=== PATIENT | male | born 1990 | race Caucasian/White ===

== ENCOUNTER 2018-08-11 15:33 | Emergency (ER) | payer MEDICAID, SELFPAY ==
[2018-08-11 15:34] VITALS: BP 139/86; PULSE 84; RESP 18; TEMP 36.7; O2SAT 97; BMI 22.8
--- NOTE | 2018-08-11 15:48 | RAD_ITS ---
STUDY: X-RAY - LEFT WRIST REASON FOR EXAM: Male, 27 years old. Wrist injury, wrist pain. TECHNIQUE: 3 view(s) of the wrist were obtained. COMPARISON: None. FINDINGS: Normal visualized distal radius and ulna. Normal radiocarpal articulation. Normal distal radioulnar articulation. Normal carpal bones. Normal carpal articulations. Normal carpometacarpal articulation of the thumb. Normal second through fifth carpometacarpal articulations. Normal visualized metacarpal bones. The soft tissue structures are unremarkable. RAD/Wrist min 3 Views IMPRESSION: Normal x-ray examination of the wrist. Electronically Signed: Artur Fajardo MD at 16:21 EDT Tel , Service support ,
--- NOTE | 2018-08-11 15:49 | ED.VISSUMM ---
- ER Visit Summary Date of Service: 08/11/18 Chief Complaint: Left wrist injury History of Present Illness: The patient is a 27 M presenting with injury to left wrist. This occurred yesterday at work. Patient states that he was throwing pipe. He felt a pop in his left wrist. He is right-handed. He states he woke up this morning with worsening pain. Denies other complaints. Physical Examination: Vitals are stable. Patient is afebrile. Alert no acute distress. HEENT exam is unremarkable. Lungs are clear and equal bilaterally. Heart is regular rate and rhythm. Extremities left wrist diffuse tenderness with no swelling or deformity. Normal cap refill. Active full range of motion. Skin is warm and dry. No focal neurologic deficit. Remainder of exam is unremarkable. Emergency Department Course and Treatment: Ice pack was applied. X-ray left wrist shows normal x-ray examination of the wrist. Patient was given a Velcro wrist splint. He was given prescription for naproxen. Advised to follow-up with [facility]. Advised to return to ED if worsening complaints. Disposition: Discharge home Impression: Left wrist sprain This note was generated with [employer] dictation software. It may contain incorrect words, spelling, and punctuation that were not noted in review of the chart prior to signing ED Disposition - Plan for ED Patient: Referrals: Care Physician,No Primary [Primary Care Provider] -
--- NOTE | 2018-08-11 16:30 | ED.RN ---
cooperate care at bedside, pt now refusing workers comp and drug screening.
--- NOTE | 2018-08-11 16:39 | ED.DEP ---
ED Disposition - Plan for ED Patient: Instructions: Wrist Sprain Prescriptions: Naproxen [Naprosyn] 500 mg PO BID PRN #20 tablet Referrals: [facility] [[facility] OF PHYSICIANS] -
[2018-08-11 17:02] VITALS: PULSE 91; RESP 18; O2SAT 99
[2018-08-11] MEDS: Naproxen 500 MG Tablet PO (17:03)
== END 2018-08-11 17:03 | disposition home or self-care (01) ==
PROVIDERS: Emergency Provider Emergency Medicine
DX: S63.502A Unspecified sprain of left wrist, initial encounter (principal); X58.XXXA Exposure to other specified factors, initial encounter; Y93.9 Activity, unspecified; Y92.9 Unspecified place or not applicable; Z72.0 Tobacco use
CPT/HCPCS: 73110; 99283

== ENCOUNTER 2019-01-14 11:26 | Emergency (ER) | payer MEDICAID, SELFPAY ==
[2019-01-14 11:27] VITALS: BP 136/80; PULSE 89; RESP 16; TEMP 36.2; O2SAT 98; BMI 22.9
--- NOTE | 2019-01-14 11:39 | ED.DCSUM_ITS ---
- ER Visit Summary Date of Service: 01/14/19 Chief Complaint: [Chest pain] History of Present Illness: The patient is a 28 M [presents to the emergency department with complaint of right-sided chest discomfort that started this morning. Patient complains of pain with deep breaths and moving certain ways. He denies recent travel or surgery. He denies any fever or cough. He is not had symptoms like this before. 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 Patient is a smoker.] Physical Examination: [HEENT-PERRLA, EOMI. Cranial nerves II through XII grossly intact. TMs clear. Mucous membranes moist. No adenopathy. Cardiovascular-regular rate and rhythm without murmur or ectopy Lungs-clear to auscultation, chest wall stable without crepitus or subcu emphysema. Patient has tenderness palpation over the right chest wall in the midaxillary line on the right. Abdomen-normoactive bowel sounds, soft, nontender, no rebound or rigidity, no peritoneal signs. Extremities-intact ?4, normal range of motion, normal pulses, atraumatic] Test Results: [CBC with differential count 9.3, hemoglobin 13, hematocrit 37, platelets 201. Chemistries unremarkable. LFTs showed an ALT of 56, AST 48, alk phos 57 and d-dimer was 1.61. Chest x-ray obtained showed questionable mass right middle lobe with nodules noted in the right middle lobe. CTA of the chest obtained showed no evidence for PE or dissection however he was noted to have mass in the right lower lobe with right lower lobe pulmonary nodules minimal right pleural effusion with right basilar atelectasis and enlargement of the right hilar lymph node and subcarinal nodes. Patient was noted to have some subtle erosive changes in the posterior aspect of the right lower rib.] Emergency Department Course and Treatment: [Patient case discussed with oncologist on-call Dr. Jabier Santos who would be happy to follow-up patient in the office. Given patient's history of sarcoma there is concern for possible recurrence and possible this is.] Treatment Plan: [Patient will be given a prescription for [place].] Disposition: [Discharged home in stable condition] Impression: [Right lung mass Chest wall pain] This note was generated with [employer] software. It may contain incorrect words, spelling, and punctuation that were not noted in review of the chart prior to signing ED Disposition - Plan for ED Patient: Referrals: Care Physician,No Primary [Primary Care Provider] -
--- NOTE | 2019-01-14 11:55 | RAD_ITS ---
STUDY: X-RAY CHEST REASON FOR EXAM: Male, 28 years old. Right-sided rib pain. Patient has a history of sarcoma of the right thigh. TECHNIQUE: PA and lateral views of the chest. COMPARISON: None. FINDINGS: There is evidence of a consolidation and possible mass in the superior segment of the right lower lobe. There is a 1.6 cm x 1.3 cm nodule in the right lung base. A smaller nodule is seen adjacent. Correlation with the CT scan of the thorax is recommended. There is no demonstrated pleural abnormality. Normal size heart. Normal mediastinum and [place]. Normal visualized pulmonary arteries. Normal visualized aortic arch and descending thoracic aorta. Normal visualized thoracic spine. Normal visualized ribs, clavicles, and shoulders. There is no demonstrated abnormality of the visualized soft tissue structures of the upper abdomen. RAD/Chest PA and Lateral IMPRESSION: Mass lesion versus consolidation in the superior segment of the right lower lobe as well as 2 small nodules in the right lung base. Correlation with CT is recommended. Electronically Signed: Nikhil Del Rio, at 12:52 EST , Service support ,
[2019-01-14 12:15] LABS: D-Dimer Quantitative (DVT/PE) 1.61 FEU/ug/m (0.27-0.49)
--- NOTE | 2019-01-14 12:15 | CT_ITS ---
STUDY: CTA CHEST REASON FOR EXAM: Male, 28 years old. Right-sided chest pain. 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 RADIATION DOSAGE (If Supplied By Facility): CTDIvol = ( 12.28 ) mGy, DLP = ( 317.34 ) mGycm TECHNIQUE: The examination was performed with the intravenous administration of 75mL Isovue-370. Post-processing of the angiographic images was performed, with multiplanar reformation and 3D reconstruction. Individualized dose optimization techniques were used for this CT. COMPARISON: Comparison is made with prior chest radiograph done earlier in the day. FINDINGS: Normal enhancement of the main pulmonary artery and right and left pulmonary arteries. Normal enhancement of the bilateral peripheral pulmonary arteries. There is no demonstrated pulmonary embolism. Normal thoracic aorta and visualized great vessels. There is no demonstrated aortic dissection. Normal heart and pericardium. There is enlarged right hilar lymph nodes. The largest measures 1.3 cm. Is also evidence of small subcarinal lymph nodes. Normal visualized trachea and bronchi. The lungs are well expanded. There is a 7 cm x 4.9 cm x 9.1 cm mass in the superior segment of the right lower lobe extending into the posterior medial segment of the right lower lobe. This abuts the posterior mediastinum. 3 pulmonary nodules are seen in the right lower lobe. The largest measures 1.5 cm. Minimal right pleural effusion with findings suggestive of a right basilar atelectasis. Normal pleura. Normal chest wall structures. Subtle erosive changes in the posterior aspect of the right lower rib. Normal visualized upper abdomen. CT/CTA Chest W/WO Contrast IMPRESSION: Mass in the right lower lobe with right lower lobe pulmonary nodules as described. Minimal right pleural effusion with right basilar atelectasis. Enlargement of the right hilar lymph node and subcarinal nodes. Electronically Signed: Nikhil Del Rio, at 13:07 EST , Service support ,
--- NOTE | 2019-01-14 12:17 | ED.RN ---
ddimer 1.[address] lab[address] dr diaz aware
[2019-01-14 12:46] VITALS: PULSE 73; RESP 18; O2SAT 97
[2019-01-14 12:51] LABS: Absolute Lymphocyte Count 1.65 X10^3/uL (0.83-4.51); Absolute Neutrophil Count 6.6 X10^3/uL (2.0-7.7); Basophil# 0.05 X10^3/uL; Basophil% 0.5 % (0-1); Differential Indicated SCAN CRITERIA MET; Eosinophil# 0.07 X10^3/uL; Eosinophils% 0.8 % (0-5); Hematocrit 37.3 % (40-54); Hemoglobin 13.1 g/dL (13.0-16.5); Lymphocyte # 1.65 X10^3/ul (4.0); Lymphocyte % 17.8 % (19-41); Mean Corp Hgb Conc 35.1 g/dL (32-36); Mean Corpuscular Hgb 31.3 pg (27.0-32.0); Mean Corpuscular Volume 89.2 fL (80-94); Mean Platelet Vol. 10.3 fl (6.2-12.0); Monocyte# 0.86 X10^3/uL; Monocyte% 9.3 % (0-10); NRBC Flagged by Analyzer 0 % (0-5); Neutrophil # 6.62 X10^3/uL (2.7-7.7); Neutrophil % 71.3 % (47-70); POSITIVE MORPHOLOGY YES; Platelet Count 201 K/mm3 (150-450); RBC Distribution Width CV 12.1 % (11.6-14.6); RBC Distribution Width SD 39.5 fl (35.1-43.9); Red Blood Count 4.18 M/mm3 (4.6-6.2); White Blood Count 9.3 K/mm3 (4.4-11.0)
[2019-01-14 13:21] LABS: AST(SGOT) 48 U/L (15-37); Alanine Aminotransfer ALT/SGPT 56 U/L (16-61); Albumin, Serum 3.3 g/dL (3.2-5.0); Alkaline Phosphatase 57 U/L (45-117); Anion Gap 11 (5-15); BUN 7 mg/dL (7-18); BUN/Creat Ratio 7.5 RATIO (10-20); Calcium,Total 8.2 mg/dL (8.5-10.1); Chloride 107 mmol/L (98-107); Creatinine, Serum 0.93 mg/dL (0.70-1.30); EST Glomerular Filtration Rate 101 mL/min (>60); Est Glom Filt Rate - Afr Amer 122 mL/min (>60); Estimated Creatinine Clearance 125.93 ml/min; Globulin 3.2 g/dL (2.2-4.2); Glucose 117 mg/dL (74-106); Potassium 3.7 mmol/L (3.5-5.1); Protein, Total 6.5 g/dL (6.4-8.2); Sodium Level 140 mmol/L (136-145)
[2019-01-14 13:32] LABS: Platelet Estimate ADEQUATE (ADEQ); Red Cell Morphology NORM C+C NORMAL (NORM C&C)
--- NOTE | 2019-01-14 13:58 | ED.DEP ---
ED Disposition - Plan for ED Patient: Instructions: Cancer of the Lung Prescriptions: Hydrocodone Bitart/Apap 5-325 [[place] 5MG-325MG] 1 tab PO Q4H PRN PRN 2 Days #20 tab PRN Reason: Pain Prescription Printed Referrals: Care Physician,No Primary [Primary Care Provider] - Additional Instructions: You have a mass in your lung and possibly destructive lesion of your right rib. Follow up with Oncology at earliest possible time
[2019-01-14 14:03] LABS: Differential Comment SCANNED
[2019-01-14 14:04] VITALS: BP 124/68; PULSE 77; RESP 17; O2SAT 98
[2019-01-14 14:04] LABS: Reactive Lymphocyte 2+
== END 2019-01-14 14:08 | disposition home or self-care (01) ==
PROVIDERS: Emergency Provider Emergency Medicine
DX: R91.8 Other nonspecific abnormal finding of lung field (principal); R07.89 Other chest pain; J90 Pleural effusion, not elsewhere classified; J98.11 Atelectasis; F17.200 Nicotine dependence, unspecified, uncomplicated; Z85.831 Personal history of malignant neoplasm of soft tissue
CPT/HCPCS: 71046; 71275; 80053; 85025; 85379; 99283; Q9967; A4216